=== PATIENT | female | born 1965 | race Caucasian/White ===

== ENCOUNTER 2024-02-02 18:49 | Observation (INO) ==
--- NOTE | 2024-02-02 19:41 | ED.PDOC ---
General ED Provider: Dr. LORY STEWART DO Chief Complaint: Non-specific Complaint Stated Complaint: Patient is a 58 yo F here for weakness and decreased PO intake Patient arrives afebrile with stable blood pressure She is fighting pancreatic cancer with the [facility] cancer team She has been on a break from chemotherapy sicjan 16 due to discomfort with side effects Her PCP is Dr. Aguayo She denies falls or injuries No sick contacts She was diagnosed late last year She has had a pancreatic stent placed and has had to have clean out follow on procedures of the stent Goal is for cancer to shrink with chemo and follow on Whipple procedure She denies rash or dysuria She reports decreased PO intake, weakness, nausea discomfort No bleeding No sob No productive cough or dysuria She and her are frustrated with multiple hospital visits with ER boarding and overcrowding at [facility] and [facility] Patient stable Time Seen by Provider: 02/02/24 19:00 Information Source: Patient Primary Care Provider: JAM AGUAYO Nursing and Triage Documentation Reviewed and Agree: Yes What is Opioid Naive?: *Opioid Naive implies the patient is not already taking opioids or not chronically receiving opioids on a daily basis. *PRN dosing is not "usually" associated with tolerance. *Patients are at higher risk of over-sedation and aspiration. What is Opioid Tolerant?: *Opioid Tolerance implies less than the expected response to an opioid. *Acquired tolerance is defined by the patient taking 60mg of oral morphine daily (or equianalgesic dose of another opioid) for 1 week or more. *Often associated with chronic pain. *May take more than usual dose to achieve desired pain control. Review of Systems Review Of Systems Constitutional: Reports Fever and Weakness; Denies Chills, Malaise or Sweats Eyes: Denies Blindness or Vision change Ears, Nose, Mouth, Throat: Denies Ear pain, Nose pain or Epistaxis Respiratory: Reports Cough; Denies Stridor or Wheezing Cardiac: Denies Chest pain or Palpitations GI: Reports Nausea and Vomiting; Denies Constipated or Diarrhea : Denies Burning, Dysuria or Discharge Musculoskeletal: Denies Back pain or Joint pain Skin: Denies Bruising or Rash Neurological: Denies Anxiety or Depressed Endocrine: Reports No symptoms Hematologic/Lymphatic: Reports No symptoms All Other Systems: Reviewed and Negative [facility] Medical History (Updated 02/03/24 @ 05:56 by LORY STEWART DO) Cancer 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 C80.1 - Malignant (primary) neoplasm, unspecified (ICD-10) Family History (Updated 02/02/24 @ 23:10 by IRA HARRIS, RN) Other No known health problems Social History (Updated 02/02/24 @ 23:11 by IRA HARRIS, RN) Smoking and tobacco status: Never smoker Physical Exam Physical Exam Appearance: Reports Well-appearing and Well-nourished Ill-appearing: Not Applicable Pain Distress: Not Applicable Eyes: Reports FADI, EOMI and Conjunctiva clear ENT: Reports Ears normal, Nose normal and Oropharynx normal Neck: Supple Respiratory: Reports Airway patent, Breath sounds clear and Other (RR 16 on my exam) Cardiovascular: Reports RRR (HR 90 on my exam) and Other (R chest port in place no warmth or rash or discharge) GI/: Reports Soft, Nontender and Other (no guarding or peritonitis, negative mercer sign, no gross fluid wave) Musculoskeletal: Reports Normal strength and ROM intact Skin: Reports Warm and Dry Neurological: Reports Sensation intact and Motor intact Psychiatric: Reports Affect appropriate and Mood appropriate Interpretation EKG Interpretation EKG Interpretation By: ED Physician Time of EKG #1: 19:51 Interpretation: NSR rate 90 no stemi qrs and qt wnl Course Course 02/03/24 05:16 02/02/24 20:04 Orders, Labs, Meds: Lab Review 02/02/24 02/02/24 02/02/24 08:08 19:40 20:04 WBC 14.14 H RBC 3.16 L Hgb 9.3 L Hct 28.8 L MCV 91.1 MCH 29.4 MCHC 32.3 RDW Coeff of Bryce 21.5 H Plt Count 177 Immature Gran % (Auto) 2.3 Neut % (Auto) 77.9 H Lymph % (Auto) 6.9 L Braxton % (Auto) 12.7 H Eos % (Auto) 0.0 Baso % (Auto) 0.2 Neut # (Auto) 11.0 H Lymph # (Auto) 1.0 Braxton # (Auto) 1.8 Eos # (Auto) 0.0 Baso # (Auto) 0.0 Immature Gran # (Auto) 0.3 VBG pH 7.45 H VBG pCO2 29 L VBG pO2 85 H VBG HCO3 20.2 L VBG O2 Saturation 96.9 H Sodium 128.5 L Potassium 3.58 Chloride 107.1 H Carbon Dioxide 17.4 L Anion Gap 7.58 BUN 7.5 Creatinine 0.57 L Estimated GFR (MDRD) 109.00 BUN/Creatinine Ratio 13.15 Glucose 102.6 Lactic Acid 0.76 Calcium 7.77 L Total Bilirubin 1.68 H AST 95.5 H ALT 54.8 H Alkaline Phosphatase 436.6 H Troponin I < 0.012 Total Protein 6.11 L Albumin 2.69 L Globulin 3.42 Albumin/Globulin Ratio 0.78 Lipase 24.0 Procalcitonin 0.97 H Urine Color Serena Urine Clarity Slightly Urine pH 5.5 Ur Specific [place] >=1.030 Urine Protein 2+ H Urine Glucose (UA) Negative Urine Ketones Trace H Urine Blood 3+ H Urine Nitrite Negative Urine Bilirubin 1+ H Urine Urobilinogen 1.0 H Ur Leukocyte Esterase Negative Urine Microscopic RBC 5-10 Urine Microscopic WBC 0-2 Ur Squamous Epith Cells 5-10 Urine Bacteria 3+ Urine Mucus 3+ Urine Yeast 1+ Adenovirus (PCR) Not detected B. pertussis DNA (PCR) Not detected B.parapertussis DNA PCR Not detected C. pneumoniae DNA (PCR) Not detected Coronavirus OC43 (PCR) Not detected Coronavirus HKU1 (PCR) Not detected Coronavirus 229E (PCR) Not detected Coronavirus NL63 (PCR) Not detected Human Metapneumovir PCR Not detected Influenza Type A (PCR) Not detected Influenza B (RT-PCR) Not detected M. pneumoniae (PCR) Not detected Parainfluenza 1 (PCR) Not detected Parainfluenza 2 (PCR) Not detected Parainfluenza 3 (PCR) Not detected Parainfluenza 4 (PCR) Not detected RSV (PCR) Not detected Entero/Rhino (PCR) Not detected SARS-CoV-2 (PCR) Not detected Orders Category Date Time Status ADMIT OBSERVATION [PLACE PATIENT OBSERVATION] .TO ADMISSION 02/02/24 22:09 Completed MEDSURG (MONITORED BED) PLACE PATIENT OBSERVATION .TO MEDSURG (MONITORED BED ADMISSION 02/02/24 22:00 Active ) EKG-(ED ONLY) Stat CARDIO 02/02/24 19:35 Completed VBG DRAW REQUEST Stat CARDIO 02/02/24 20:14 Completed VBG DRAW REQUEST Stat CARDIO 02/02/24 20:21 Completed ACTIVITY .Up With Assistance CARE 02/02/24 22:00 Active INTAKE & OUTPUT Q8HR CARE 02/02/24 22:01 Active NPO REMINDER: IMAGING ONCE CARE 02/02/24 19:34 Completed TELEMETRY MONITORING TELE CARE 02/02/24 22:01 Active TELEMETRY MONITORING TELE CARE 02/02/24 22:09 Completed VITAL SIGNS Q8HR CARE 02/02/24 22:01 Completed REGULAR DIET DIETARY 02/03/24 Breakfast Ordered BLOOD CULTURE Stat LAB 02/02/24 22:42 Received CBC W/ AUTO DIFF DAILY@0600 LAB 02/03/24 05:16 Completed CBC W/ AUTO DIFF DAILY@0600 LAB 02/04/24 06:00 Ordered CBC W/ AUTO DIFF Stat LAB 02/02/24 20:04 Completed COMPREHENSIVE METABOLIC PANEL DAILY@0600 LAB 02/03/24 05:16 Received COMPREHENSIVE METABOLIC PANEL DAILY@0600 LAB 02/04/24 06:00 Ordered COMPREHENSIVE METABOLIC PANEL Stat LAB 02/02/24 20:04 Completed LACTIC ACID Stat LAB 02/02/24 20:04 Completed LEGIONELLA URINARY ANTIGEN Stat LAB 02/02/24 22:02 Uncollected LIPASE Stat LAB 02/02/24 20:04 Completed MISCELLANEOUS SEND OUT Stat LAB 02/02/24 19:40 Received MRSA SCREEN Routine LAB 02/02/24 22:05 Uncollected PROCALCITONIN DAILY LAB 02/03/24 05:16 Received PROCALCITONIN DAILY LAB 02/04/24 06:00 Ordered PROCALCITONIN Stat LAB 02/02/24 20:04 Completed RESPIRATORY PANEL 2.1 (PCR) Stat LAB 02/02/24 19:40 Completed TROPONIN I Stat LAB 02/02/24 20:04 Completed URINALYSIS C & S IF INDICATED Stat LAB 02/02/24 19:40 Completed URINE CULTURE Stat LAB 02/02/24 19:40 Received VBG [VENOUS BLOOD GAS] Stat LAB 02/02/24 08:08 Completed Acetaminophen [Tylenol] Meds 02/02/24 22:00 Active 650 mg PO Q4H PRN Ondansetron HCl/Pf [Zofran 4 mg/2 ml] Meds 02/02/24 22:00 Active 4 mg IVP Q6H PRN Piperacillin Sodium/Tazobactam [Zosyn 4.5 gm] 4.5 gm Meds 02/02/24 21:50 Discontinued 0.9 % Sodium Chloride [Sodium Chloride 100Ml] 100 ml IV ONCE Piperacillin Sodium/Tazobactam [Zosyn 4.5 gm] 4.5 gm Meds 02/03/24 04:00 Active 0.9 % Sodium Chloride [Sodium Chloride 100Ml] 100 ml IV Q6HR Sodium Chloride 0.9% [Sodium Chloride] 1,000 ml Meds 02/02/24 19:33 Discontinued IV BOLUS Vancomycin/Water For Inj (Peg) [Vancomycin 1.5 Gram/300 Meds 02/02/24 21:50 Discontinued ml Premix] 1.5 gm in 300 ml IV ONCE Vancomycin/Water For Inj (Peg) [Vancomycin 1.5 Gram/300 Meds 02/03/24 11:00 Active ml Premix] 1.5 gm in [address] ABDOMEN/PELVIS W CONTRAST Stat RADS 02/02/24 19:[address] CHEST PE PROTOCOL Stat RADS 02/02/24 19:33 Completed Medications Generic Name Dose Route Start Last Admin Trade Name Freq PRN Reason Stop Dose Admin Acetaminophen 650 mg 02/02/24 22:00 Acetaminophen 325 Mg Tablet PO Q4H PRN Mild Pain Piperacillin Sod/Tazobactam 100 mls @ 200 mls/hr 02/03/24 04:00 02/03/24 03:58 Sod 4.5 gm/ Sodium Chloride IV 02/06/24 03:59 200 mls/hr Q6HR [facility] Administration VANCOMYCIN/WATER FOR INJ (PEG) 1.5 gm in 300 mls @ 200 mls/hr 02/03/24 11:00 Vancomycin 1.5 Gram/300 Ml Premix IV 02/06/24 10:59 Q12H [facility] Ondansetron HCl 4 mg 02/02/24 22:00 Ondansetron Hcl/Pf 4 Mg/2 Ml Sdv IVP Q6H PRN Nausea / Vomiting Discontinued Medications Generic Name Dose Route Start Last Admin Trade Name Freq PRN Reason Stop Dose Admin Sodium Chloride 1,000 mls @ 1,000 mls/hr 02/02/24 19:33 02/02/24 21:47 Sodium Chloride IV 02/02/24 20:32 Infused BOLUS ONE Infusion VANCOMYCIN/WATER FOR INJ (PEG) 1.5 gm in 300 mls @ 200 mls/hr 02/02/24 21:50 02/02/24 23:20 Vancomycin 1.5 Gram/300 Ml Premix IV 02/02/24 23:19 200 mls/hr ONCE ONE Administration Piperacillin Sod/Tazobactam 100 mls @ 200 mls/hr 02/02/24 21:50 02/02/24 22:06 Sod 4.5 gm/ Sodium Chloride IV 02/02/24 22:19 200 mls/hr ONCE ONE Administration Vital Signs: Temp Pulse Resp BP Pulse Ox 02/02/24 18:51 99.4 F 104 H 24 H 144/85 H 92 L Patient amenable to IV abx and admission for BL pneumonia without sepsis Hospitalist agrees with observation Pending consult with [facility] pay station collector oncologist to review case and care plan, Dr. nguyen agrees with plan MDM: patient is a 58 yo F here for weakness cough and discomfort Patient afebrile and vitally stable Hx from patient chart review by me exam reassuring 3+ labs and 3 images reviewed by me I consulted Hospitalist here for admission and her pay station collector Oncologist from [facility] who also agrees with local admission WDX: Weakness, pneumonia, cough, discomfort DDX: I considered sepsis, PE acs but these were not found SDOH: Patient has PCP and family support All questions answered patient discharged stable Discharge Plan Discharge Patient Disposition: PLACED OBSERVATION Discharge Problem: Pneumonia Did you review [place] [employer] for ALL controlled substances?: Not Applicable ED Provider: LORY STEWART Condition: Good Physician Progress Note: []
[2024-02-02] MEDS: SODIUM CHLORIDE 1,000 ML IV ONE (20:07)
[2024-02-02 20:09] LABS: BORDETELLA PARAPERTUSSIS (PCR) NOT DETECTED (NOT DETECT); BORDETELLA PERTUSSIS (PCR) NOT DETECTED (NOT DETECT); CHLAMYDIA PNEUMONIAE (PCR) NOT DETECTED (NOT DETECT); CORONAVIRUS 229E (PCR) NOT DETECTED (NOT DETECT); CORONAVIRUS HKU1 (PCR) NOT DETECTED (NOT DETECT); CORONAVIRUS NL63 (PCR) NOT DETECTED (NOT DETECT); CORONAVIRUS OC43 (PCR) NOT DETECTED (NOT DETECT); HUMAN METAPNEUMOVIRUS (PCR) NOT DETECTED (NOT DETECT); HUMAN RHINOVIRUS/ENTEROV (PCR) NOT DETECTED (NOT DETECT); INFLUENZA B (PCR) NOT DETECTED (NOT DETECT); MYCOPLASMA PNEUMONIAE (PCR) NOT DETECTED (NOT DETECT); PARAINFLUENZA VIRUS 1 (PCR) NOT DETECTED (NOT DETECT); PARAINFLUENZA VIRUS 2 (PCR) NOT DETECTED (NOT DETECT); PARAINFLUENZA VIRUS 3 (PCR) NOT DETECTED (NOT DETECT); PARAINFLUENZA VIRUS 4 (PCR) NOT DETECTED (NOT DETECT); RESPIRATORY SYNCYTIAL V (PCR) NOT DETECTED (NOT DETECT); SARS_COV_2 (PCR) NOT DETECTED (NOT DETECT)
[2024-02-02 20:09] LABS: BASOPHILS % (AUTO) 0.2 % (0.0-3.0); HEMATOCRIT 28.8 % (37.0-47.0); HEMOGLOBIN 9.3 g/dl (12.0-16.0); IMMATURE GRANULOCYTE # (AUTO) 0.3 (0.0-1.0); IMMATURE GRANULOCYTE % (AUTO) 2.3 % (0.0-5.0); LYMPHOCYTES % (AUTO) 6.9 (10.0-50.0); MEAN CORPUSCULAR HEMOGLOBIN 29.4 pg (27.0-31.0); MEAN CORPUSCULAR HGB CONC 32.3 (31.8-35.4); MEAN CORPUSCULAR VOLUME 91.1 fl (81.0-99.0); MONOCYTES # (AUTO) 1.8 K/uL (0.4-2.0); MONOCYTES % (AUTO) 12.7 (0-10); NEUTROPHILS % (AUTO) 77.9 % (42.2-75.2); PLATELET COUNT 177 10^3/uL (140-440); RDW COEFFICIENT OF VARIATION 21.5 % (11.6-14.8); RED BLOOD COUNT 3.16 10^6/ul (4.20-5.40); WHITE BLOOD COUNT 14.14 K/ul (4.6-10.2)
[2024-02-02 20:16] LABS: BILIRUBIN,URINE 1+ (NEGATIVE); CLARITY,URINE Slightly (CLEAR); COLOR,URINE Amber (YELLOW); GLUCOSE, URINE (UA) Negative (NEGATIVE); KETONES,URINE Trace (NEGATIVE); LEUKOCYTE ESTERASE ,URINE Negative (NEGATIVE); NITRITE,URINE Negative (NEGATIVE); PH,URINE 5.5 (5-9); PROTEIN,URINE 2+ (NEGATIVE); URINE, BLOOD 3+ (NEGATIVE)
[2024-02-02 20:22] LABS: ALANINE AMINOTRANSFERASE 54.8 U/L (0-35); ALBUMIN 2.69 g/dL (3.5-5.0); ALKALINE PHOSPHATASE 436.6 U/L (53-141); ASPARTATE AMINO TRANSFERASE 95.5 U/L (14-36); BILIRUBIN,TOTAL 1.68 mg/dL (0.2-1.3); BLOOD UREA NITROGEN 7.5 mg/dL (7-17); CALCIUM 7.77 mg/dL (8.4-10.2); CARBON DIOXIDE 17.4 mmol/L (22-30.0); CREATININE 0.57 mg/dL (0.60-1.30); GLUCOSE 102.6 mg/dL (74-106); POTASSIUM 3.58 mmol/L (3.5-5.1); SODIUM 128.5 mmol/L (134.5-145); TOTAL PROTEIN 6.11 g/dL (6.3-8.2)
[2024-02-02 20:24] LABS: CHLORIDE 107.1 mmol/L (98-107)
[2024-02-02 20:33] LABS: VBG HCO3 20.2 (22-26); VBG OXYGEN SATURATION 96.9 (60-80); VBG PH 7.45 (7.30-7.40)
[2024-02-02 20:36] LABS: TROPONIN I < 0.012 ng/ml (0.0000-0.120)
[2024-02-02 20:57] LABS: URINE WBC, MICROSCOPIC 0-2 (0-2)
[2024-02-02 20:58] LABS: BACTERIA,URINE 3+ (NOT PRESENT); MUCUS,URINE 3+ (NOT PRESENT); YEAST,URINE 1+ (NOT PRESENT)
--- NOTE | 2024-02-02 21:26 | CT ---
EXAM: CT OF THE ABDOMEN AND PELVIS WITH CONTRAST History: Pancreatic carcinoma with metastatic disease to the liver Technique: 2.[address] of the chest utilizing CT angiography protocol. Multiplanar refor mations were performed. FINDINGS: No prior CT for comparison. Prominent atelectasis in the lung bases. Pneumobilia with me tallic biliary stent. Small volume ascites. Dilated pancreatic duct. There is a 1.4 cm hypodensity of the pancreatic head. Wedge-shaped hypodensity in the spleen with trace perisplenic ascites. 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 The appendix is normal. Normal caliber bowel loops. Generalized edema of the mesentery. Kidneys and proximal collecting system are unrema rkable. Pelvic ascites. Normal pelvic genitourinary structures. Normal pelvic bowel loops. No pelvic fat i nflammation. No acute findings of the skeleton. Impression: 1. No prior study for comparison 2. Metallic biliary stent in place. 3. Trace inflammatory stranding adjacent to the pancreatic head and duodenal wall thickening. Corre late for possible pancreatitis or duodenitis. 4. Small volume ascites 5. Wedge-shaped hypodensity in the spleen likely represents infarct, chronicity uncertain. 6. No bowel or urinary obstruction 7. No liver masses are seen All CT scans are performed using dose optimization techniques as appropriate to the performed exam an d include at least one of the following: Automated exposure control, adjustment of the mA and/or kV according t o size, and the use of iterative reconstruction technique.
[2024-02-02 21:28] LABS: ADENOVIRUS (PCR) NOT DETECTED (NOT DETECT)
--- NOTE | 2024-02-02 21:30 | CT ---
EXAM: CHEST CTA WITH CONTRAST (PULMONARY ARTERY) HISTORY: Cough. Weakness. Pancreatic cancer. TECHNIQUE: CTA acquisition of the chest from the thoracic inlet to the upper abdomen following IV con trast administration timed to filling of the pulmonary artery. IV Contrast: 100 mL of Omnipaque 350 administered. 3D/MIP/VR images were utilized. CT Dose Reduction Techniques Employed: Yes. COMPARISON: None. FINDINGS: Pulmonary Embolism: - Diagnostic quality: Adequate. - Central (Main/Lobar/Interlobar): No embolus. - Peripheral (Segmental/Subsegmental): No embolus. - Right ventricle/Left ventricle ratio: Normal. Lines, Tubes, Devices: Right Port-A-Cath with the tip in the atrial caval junction. Lung Parenchyma and Airways: Central airways are patent without endobronchial lesion. Bibasilar cons olidation. The remaining lung gallagher are clear. No suspicious pulmonary nodule. Pleural Space: The pleural effusions. No pneumothorax. Thoracic Inlet, Mediastinum, and Ashley: Thyroid gland is normal. Multiple small to prominent lymph no shantanu, largest in the pretracheal space measuring 1.8 x 1.6 cm. No abnormal density seen in the medias tinum. Heart, Vessels, and Pericardium: The heart is upper limits of normal for size with minimal pericardia l fluid. Minimal coronary artery calcifications. The aorta shows minimal atherosclerotic calcific c hanges without aneurysm or indication of dissection. Bones and Soft Tissues: There is no fracture or lytic lesion. Mild degenerative changes of the spine. Chest wall shows no enlarged axillary lymph node or mass. Upper Abdomen: . The common bile duct stent is in place with pneumobilia and air in the gallbladder without other gallbladder abnormality. The pancreatic head prominence without a defined lesion. Mi ld ascites. The upper abdomen is otherwise unremarkable. IMPRESSION: 1. Normal CT pulmonary angiogram with no evidence of pulmonary artery embolism. 2. Mild bilateral lower lobe consolidation. Atelectasis versus pneumonia. 3. Mild ascites. 4. A small prominent mediastinal and hilar lymph nodes. 5. Other chronic and non emergent findings as above. All CT scans are performed using dose optimization techniques as appropriate to the performed exam an d include at least one of the following: Automated exposure control, adjustment of the mA and/or kV according t o size, and the use of iterative reconstruction technique.
[2024-02-02] MEDS ORDERED: TYLENOL PO PRN (22:00)
[2024-02-02] MEDS ORDERED: ZOFRAN 4 MG/2 ML IVP PRN (22:00)
[2024-02-02] MEDS: ZOSYN 4.5 GM 4.5 GM in SODIUM CHLORIDE 100ML 100 ML IV ONE (22:06)
[2024-02-02 23:17] VITALS: BMI 33.6
[2024-02-02] MEDS: VANCOMYCIN 1.5 GRAM/300 ML PREMIX 1.5 GM/300 ML BAG IV ONE (23:20)
[2024-02-03] MEDS: ZOSYN 4.5 GM 4.5 GM in SODIUM CHLORIDE 100ML 100 ML IV SCH (03:58)
[2024-02-03 05:39] LABS: BASOPHILS % (AUTO) 0.2 % (0.0-3.0); EOSINOPHILS % (AUTO) 0.1 % (0.0-7.0); HEMATOCRIT 25.4 % (37.0-47.0); HEMOGLOBIN 8.3 g/dl (12.0-16.0); IMMATURE GRANULOCYTE # (AUTO) 0.2 (0.0-1.0); IMMATURE GRANULOCYTE % (AUTO) 1.7 % (0.0-5.0); LYMPHOCYTES % (AUTO) 8.9 (10.0-50.0); MEAN CORPUSCULAR HEMOGLOBIN 30.1 pg (27.0-31.0); MEAN CORPUSCULAR HGB CONC 32.7 (31.8-35.4); MONOCYTES # (AUTO) 1.4 K/uL (0.4-2.0); MONOCYTES % (AUTO) 12.7 (0-10); NEUTROPHILS # (AUTO) 8.2 K/ul (2.0-6.9); NEUTROPHILS % (AUTO) 76.4 % (42.2-75.2); PLATELET COUNT 164 10^3/uL (140-440); RDW COEFFICIENT OF VARIATION 21.9 % (11.6-14.8); RED BLOOD COUNT 2.76 10^6/ul (4.20-5.40)
[2024-02-03 06:00] LABS: ALANINE AMINOTRANSFERASE 52.4 U/L (0-35); ALBUMIN 2.56 g/dL (3.5-5.0); ALKALINE PHOSPHATASE 408.8 U/L (53-141); ASPARTATE AMINO TRANSFERASE 92.5 U/L (14-36); BILIRUBIN,TOTAL 1.84 mg/dL (0.2-1.3); BLOOD UREA NITROGEN 7.1 mg/dL (7-17); CALCIUM 7.97 mg/dL (8.4-10.2); CARBON DIOXIDE 18.8 mmol/L (22-30.0); CHLORIDE 107.1 mmol/L (98-107); CREATININE 0.62 mg/dL (0.60-1.30); GLUCOSE 94.5 mg/dL (74-106); POTASSIUM 3.58 mmol/L (3.5-5.1); SODIUM 130.8 mmol/L (134.5-145); TOTAL PROTEIN 6.03 g/dL (6.3-8.2)
[2024-02-03] MEDS: ELIQUIS PO SCH (09:23)
[2024-02-03] MEDS: SODIUM CHLORIDE 1,000 ML IV SCH (09:24)
--- NOTE | 2024-02-03 10:30 | PCM ---
Date of Service Date Seen by Provider: 02/03/24 Time Seen by Provider: 09:00 Admit Day/Time Admission Date: 02/02/24 Reason for Admission Chief Complaint: PNEUMONIA Hospital Provider Hospital Provider: HIMANSHU LEAL, [facility] Primary Care Physician Primary Care Physician: JAM AGUAYO History of Present Illness History of Present Illness: 58 yo female presented to the ER with fever, fatigue, and cough. Patient states she has not been feeling well over the last several weeks. She has pmh of stage 4 pancreatic cancer with liver mets managed by [facility] in [place]. She last underwent chemo the last week of December and all her numbers bottomed out and chemo is on hold currently. States she has had nonproductive cough and pain with inspiration. Began running a fever as high as 100.4 over the last couple days. Reported SOB on exertion to nursing staff. Is not requiring oxygen at this time. Admitted to Med/Surg Observation Case Discussed With Case Discussed With: Patient's case was discussed with the ER Physicians, Dr. Aguayo. [facility] Medical History Cancer 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 C80.1 - Malignant (primary) neoplasm, unspecified (ICD-10) Family History Other No known health problems Social History Smoking and tobacco status: Never smoker Allergies Allergies Allergy/AdvReac Type Severity Reaction Status Date / Time No Known Allergies Allergy Verified 02/02/24 19:07 Current Medications Home Medications apixaban 5 mg tablet (Eliquis) 5 mg PO BID 06/22/23 [History Confirmed 02/02/24 Last Taken 01/31/24 06:30 5 mg] ondansetron HCl 4 mg tablet 8 mg PO Q8H PRN nausea and vomiting 02/02/24 [History Confirmed 02/02/24 Last Taken Unknown] Home Acetaminophen (Acetaminophen 325 Mg Tablet) 650 mg PO Q4H PRN PRN Reason: Mild Pain Apixaban (Apixaban 5 Mg Tab) 5 mg PO BID [facility] Last Admin: 02/03/24 09:23 Dose: 5 mg Piperacillin Sod/Tazobactam (Sod 4.5 gm/ Sodium Chloride) 100 mls @ 200 mls/hr IV Q6HR PENDING SALE TO [facility] Stop: 02/06/24 03:59 Last Admin: 02/03/24 06:09 Dose: Not Given VANCOMYCIN/WATER FOR INJ (PEG) (Vancomycin 1.5 Gram/300 Ml Premix) 1.5 gm in 300 mls @ 200 mls/hr IV Q12HR PENDING SALE TO [facility] Stop: 02/06/24 10:59 Sodium Chloride (Sodium Chloride) 1,000 mls @ 100 mls/hr IV .Q10H PENDING SALE TO [facility] Last Admin: 02/03/24 09:24 Dose: 100 mls/hr Ondansetron HCl (Ondansetron Hcl/Pf 4 Mg/2 Ml Sdv) 4 mg IVP Q6H PRN PRN Reason: Nausea / Vomiting Discontinued Medications Sodium Chloride (Sodium Chloride) 1,000 mls @ 1,000 mls/hr IV BOLUS ONE Stop: 02/02/24 20:32 Last Infusion: 02/02/24 21:47 Dose: Infused VANCOMYCIN/WATER FOR INJ (PEG) (Vancomycin 1.5 Gram/300 Ml Premix) 1.5 gm in 300 mls @ 200 mls/hr IV ONCE ONE Stop: 02/02/24 23:19 Last Admin: 02/02/24 23:20 Dose: 200 mls/hr Piperacillin Sod/Tazobactam (Sod 4.5 gm/ Sodium Chloride) 100 mls @ 200 mls/hr IV ONCE ONE Stop: 02/02/24 22:19 Last Admin: 02/02/24 22:06 Dose: 200 mls/hr Opioid Naive vs. Tolerant Does Patient Take Opioids?: No Is Patient Opioid Naive?: Yes What is Opioid Naive?: *Opioid Naive implies the patient is not already taking opioids or not chronically receiving opioids on a daily basis. *PRN dosing is not "usually" associated with tolerance. *Patients are at higher risk of over-sedation and aspiration. Is Patient Opioid Tolerant?: No What is Opioid Tolerant?: *Opioid Tolerance implies less than the expected response to an opioid. *Acquired tolerance is defined by the patient taking 60mg of oral morphine daily (or equianalgesic dose of another opioid) for 1 week or more. *Often associated with chronic pain. *May take more than usual dose to achieve desired pain control. Review of Systems Constitutional: Reports Fever, Fatigue and Weakness Head: Reports Normocephalic Eyes: Reports No symptoms Ears: Reports No symptoms Nose: Reports No symptoms Mouth: Reports No symptoms Throat: Reports No symptoms Cardiovascular: Reports No symptoms Respiratory: Reports Cough and Shortness of air Gastrointestinal: Reports No symptoms Genitourinary: Reports No Symptoms Musculoskeletal: Reports No symptoms Endocrine: Reports No symptoms Hematology: Reports No symptoms Immunology: Reports No symptoms Neurological: Reports No symptoms Psychiatric: Reports No symptoms Physical examination Most Recent Vital Signs: Most Recent Vital Signs Temperature 98.9 F 02/03/24 10:00 Temperature Source Temporal Artery Scan 02/03/24 10:00 Temperature Source Oral 02/02/24 18:51 Pulse Rate 80 02/03/24 10:00 Respiratory Rate 18 02/03/24 10:00 Blood Pressure 141/83 H 02/03/24 10:00 Blood Pressure Mean 102 02/03/24 10:00 Blood Pressure Left Arm 173/91 02/02/24 23:00 Blood Pressure Location Left Arm 02/03/24 10:00 Blood Pressure Position Supine 02/03/24 04:59 O2 Sat by Pulse Oximetry 95 02/03/24 10:00 Oxygen Delivery Method Room Air 02/03/24 10:00 Height 5 ft 5 in 02/02/24 23:00 Weight 202 lb 3 oz 02/02/24 23:00 Telemetry Type Remote Telemetry 02/03/24 07:00 Telemetry Monitoring Continues 02/03/24 07:00 Telemetry Heart Rate 84 02/03/24 07:00 Telemetry SPO2 94 02/03/24 07:00 EKG [place] Interval 0.14 02/03/24 07:00 EKG QRS Interval 0.04 L 02/03/24 07:00 Telemetry Strip Reading sr 02/03/24 07:00 Appearance: Positive No Apparent Distress and Alert and Oriented x3 Skin: Positive Warm HEENT: Positive Normocephalic and Atraumatic Neck: Positive Supple and Midline Trachea Chest/Lungs: Positive Symmetrical With Equal Breath Sounds, Rhonci and Good Air Movement all 4 Lung Fan Heart: Positive RRR and Pulses Normal GI/: Positive Soft, Nontender, Bowel Sounds Normal and No Distention Musculoskeletal: Positive Not Examined Extremities: Positive Intact Peripheral Pulses, Stable Joints Without Laxity and Good ROM in All Joints Neurological: Positive Sensation Intact, Motor intact, Reflexes Intact, Alert, Oriented and Muscle Strength 5/5 in Upper and Lower Extremities Bilaterally Labs This Visit Labs This Visit: Labs This Visit 02/02/24 02/02/24 02/02/24 08:08 19:40 20:04 WBC 14.14 H RBC 3.16 L Hgb 9.3 L Hct 28.8 L MCV 91.1 MCH 29.4 MCHC 32.3 RDW Coeff of Bryce 21.5 H Plt Count 177 Immature Gran % (Auto) 2.3 Neut % (Auto) 77.9 H Lymph % (Auto) 6.9 L Carbon % (Auto) 12.7 H Eos % (Auto) 0.0 Baso % (Auto) 0.2 Neut # (Auto) 11.0 H Lymph # (Auto) 1.0 Carbon # (Auto) 1.8 Eos # (Auto) 0.0 Baso # (Auto) 0.0 Immature Gran # (Auto) 0.3 VBG pH 7.45 H VBG pCO2 29 L VBG pO2 85 H VBG HCO3 20.2 L VBG O2 Saturation 96.9 H Sodium 128.5 L Potassium 3.58 Chloride 107.1 H Carbon Dioxide 17.4 L Anion Gap 7.58 BUN 7.5 Creatinine 0.57 L Estimated GFR (MDRD) 109.00 BUN/Creatinine Ratio 13.15 Glucose 102.6 Lactic Acid 0.76 Calcium 7.77 L Total Bilirubin 1.68 H AST 95.5 H ALT 54.8 H Alkaline Phosphatase 436.6 H Troponin I < 0.012 Total Protein 6.11 L Albumin 2.69 L Globulin 3.42 Albumin/Globulin Ratio 0.78 Lipase 24.0 Procalcitonin 0.97 H Urine Color Serena Urine Clarity Slightly Urine pH 5.5 Ur Specific [place] >=1.030 Urine Protein 2+ H Urine Glucose (UA) Negative Urine Ketones Trace H Urine Blood 3+ H Urine Nitrite Negative Urine Bilirubin 1+ H Urine Urobilinogen 1.0 H Ur Leukocyte Esterase Negative Urine Microscopic RBC 5-10 Urine Microscopic WBC 0-2 Ur Squamous Epith Cells 5-10 Urine Bacteria 3+ Urine Mucus 3+ Urine Yeast 1+ Adenovirus (PCR) Not detected B. pertussis DNA (PCR) Not detected B.parapertussis DNA PCR Not detected C. pneumoniae DNA (PCR) Not detected Coronavirus OC43 (PCR) Not detected Coronavirus HKU1 (PCR) Not detected Coronavirus 229E (PCR) Not detected Coronavirus NL63 (PCR) Not detected Human Metapneumovir PCR Not detected Influenza Type A (PCR) Not detected Influenza B (RT-PCR) Not detected M. pneumoniae (PCR) Not detected Parainfluenza 1 (PCR) Not detected Parainfluenza 2 (PCR) Not detected Parainfluenza 3 (PCR) Not detected Parainfluenza 4 (PCR) Not detected RSV (PCR) Not detected Entero/Rhino (PCR) Not detected SARS-CoV-2 (PCR) Not detected 02/03/24 05:16 WBC 10.70 H RBC 2.76 L Hgb 8.3 L Hct 25.4 L MCV 92.0 MCH 30.1 MCHC 32.7 RDW Coeff of Bryce 21.9 H Plt Count 164 Immature Gran % (Auto) 1.7 Neut % (Auto) 76.4 H Lymph % (Auto) 8.9 L Carbon % (Auto) 12.7 H Eos % (Auto) 0.1 Baso % (Auto) 0.2 Neut # (Auto) 8.2 H Lymph # (Auto) 1.0 Carbon # (Auto) 1.4 Eos # (Auto) 0.0 Baso # (Auto) 0.0 Immature Gran # (Auto) 0.2 VBG pH VBG pCO2 VBG pO2 VBG HCO3 VBG O2 Saturation Sodium 130.8 L Potassium 3.58 Chloride 107.1 H Carbon Dioxide 18.8 L Anion Gap 8.48 BUN 7.1 Creatinine 0.62 Estimated GFR (MDRD) 99.00 BUN/Creatinine Ratio 11.45 Glucose 94.5 Lactic Acid Calcium 7.97 L Total Bilirubin 1.84 H AST 92.5 H ALT 52.4 H Alkaline Phosphatase 408.8 H D Troponin I Total Protein 6.03 L Albumin 2.56 L Globulin 3.47 Albumin/Globulin Ratio 0.73 Lipase Procalcitonin 0.98 H Urine Color Urine Clarity Urine pH Ur Specific [place] Urine Protein Urine Glucose (UA) Urine Ketones Urine Blood Urine Nitrite Urine Bilirubin Urine Urobilinogen Ur Leukocyte Esterase Urine Microscopic RBC Urine Microscopic WBC Ur Squamous Epith Cells Urine Bacteria Urine Mucus Urine Yeast Adenovirus (PCR) B. pertussis DNA (PCR) B.parapertussis DNA PCR C. pneumoniae DNA (PCR) Coronavirus OC43 (PCR) Coronavirus HKU1 (PCR) Coronavirus 229E (PCR) Coronavirus NL63 (PCR) Human Metapneumovir PCR Influenza Type A (PCR) Influenza B (RT-PCR) M. pneumoniae (PCR) Parainfluenza 1 (PCR) Parainfluenza 2 (PCR) Parainfluenza 3 (PCR) Parainfluenza 4 (PCR) RSV (PCR) Entero/Rhino (PCR) SARS-CoV-2 (PCR) Microbiology This Visit 02/02/24 19:40 Urine,Clean Catch Urine Culture - Preliminary Imaging Imaging: EXAM: CHEST CTA WITH CONTRAST (PULMONARY ARTERY) FINDINGS: Pulmonary Embolism: - Diagnostic quality: Adequate. - Central (Main/Lobar/Interlobar): No embolus. - Peripheral (Segmental/Subsegmental): No embolus. - Right ventricle/Left ventricle ratio: Normal. Lines, Tubes, Devices: Right Port-A-Cath with the tip in the atrial caval junction. Lung Parenchyma and Airways: Central airways are patent without endobronchial lesion. Bibasilar consolidation. The remaining lung fan are clear. No suspicious pulmonary nodule. Pleural Space: The pleural effusions. No pneumothorax. Thoracic Inlet, Mediastinum, and Ashley: Thyroid gland is normal. Multiple small to prominent lymph nodes, largest in the pretracheal space measuring 1.8 x 1.6 cm. No abnormal density seen in the mediastinum. Heart, Vessels, and Pericardium: The heart is upper limits of normal for size with minimal pericardial fluid. Minimal coronary artery calcifications. The aorta shows minimal atherosclerotic calcific changes without aneurysm or indication of dissection. Bones and Soft Tissues: There is no fracture or lytic lesion. Mild degenerative changes of the spine. Chest wall shows no enlarged axillary lymph node or mass. Upper Abdomen: . The common bile duct stent is in place with pneumobilia and air in the gallbladder without other gallbladder abnormality. The pancreatic head prominence without a defined lesion. Mild ascites. The upper abdomen is otherwise unremarkable. IMPRESSION: 1. Normal CT pulmonary angiogram with no evidence of pulmonary artery embolism. 2. Mild bilateral lower lobe consolidation. Atelectasis versus pneumonia. 3. Mild ascites. 4. A small prominent mediastinal and hilar lymph nodes. 5. Other chronic and non emergent findings as above. Review Statement Review Statement: I have independently reviewed and interpreted the labs/EKGs/imaging that were ordered by the ER provider. I have reviewed all outside records that are available currently in our EMR including imaging/notes/labs from previous visits. Plan Plan: 1. Sepsis r/o - vanc and zosyn ordered, received 1L IVF in ER. blood culture pending, trend wbc and procal 2. Community Acquired Pneumonia - vanc and zosyn, MRSA, legionella, strep pneumo ordered. 3. Hyponatremia - mild at 130.8, appears dry, NS@100mL/hr, tele 4. Pancreatic Cancer - Follows with [facility], continue eliquis DVT Prophylaxis: Eliquis Time Spent: Greater than 80 minutes spent with patient, 50% of the time spent with this patient was devoted to counseling and coordination of care. [facility] minutes spent discussing advance care planning. Disposition: Admit to: Med/Surg Observation Full Code Discussed Plan of Care with Dr. Michael Fuentes. Medications Medication Orders: Medications Ordered Category Date Time Status Acetaminophen [Tylenol] Meds 02/02/24 22:00 Active 650 mg PO Q4H PRN Apixaban [Eliquis] Meds 02/03/24 09:00 Active 5 mg PO BID Ondansetron HCl/Pf [Zofran 4 mg/2 ml] Meds 02/02/24 22:00 Active 4 mg IVP Q6H PRN Piperacillin Sodium/Tazobactam [Zosyn 4.5 gm] 4.5 gm Meds 02/03/24 04:00 Active 0.9 % Sodium Chloride [Sodium Chloride 100Ml] 100 ml IV Q6HR Sodium Chloride 0.9% [Sodium Chloride] 1,000 ml Meds 02/03/24 08:30 Active IV 100 mls/hr Vancomycin/Water For Inj (Peg) [Vancomycin 1.5 Gram/300 Meds 02/03/24 11:00 Active ml Premix] 1.5 gm in 300 ml IV Q12HR
[2024-02-03 11:01] LABS: IRON 22.4 ug/dL (37-170)
[2024-02-03] MEDS: VANCOMYCIN 1.5 GRAM/300 ML PREMIX 1.5 GM/300 ML BAG IV SCH (11:50)
[2024-02-03] MEDS: FERROUS SULFATE PO SCH (21:05)
[2024-02-04 05:21] LABS: BASOPHILS # (AUTO) 0.1 K/uL (0-0.2); BASOPHILS % (AUTO) 0.6 % (0.0-3.0); EOSINOPHILS # (AUTO) 0.1 K/ul (0.0-0.7); EOSINOPHILS % (AUTO) 0.8 % (0.0-7.0); HEMATOCRIT 25.6 % (37.0-47.0); HEMOGLOBIN 8.2 g/dl (12.0-16.0); IMMATURE GRANULOCYTE # (AUTO) 0.1 (0.0-1.0); IMMATURE GRANULOCYTE % (AUTO) 1.5 % (0.0-5.0); LYMPHOCYTES # (AUTO) 0.8 K/uL (0.60-3.4); LYMPHOCYTES % (AUTO) 10.3 (10.0-50.0); MEAN CORPUSCULAR HEMOGLOBIN 29.5 pg (27.0-31.0); MEAN CORPUSCULAR VOLUME 92.1 fl (81.0-99.0); MONOCYTES # (AUTO) 1.1 K/uL (0.4-2.0); MONOCYTES % (AUTO) 14.1 (0-10); NEUTROPHILS # (AUTO) 5.8 K/ul (2.0-6.9); NEUTROPHILS % (AUTO) 72.7 % (42.2-75.2); PLATELET COUNT 146 10^3/uL (140-440); RDW COEFFICIENT OF VARIATION 21.7 % (11.6-14.8); RED BLOOD COUNT 2.78 10^6/ul (4.20-5.40); WHITE BLOOD COUNT 7.99 K/ul (4.6-10.2)
[2024-02-04 05:35] LABS: ALANINE AMINOTRANSFERASE 52.6 U/L (0-35); ALBUMIN 2.5 g/dL (3.5-5.0); ALKALINE PHOSPHATASE 384.4 U/L (53-141); ASPARTATE AMINO TRANSFERASE 88.8 U/L (14-36); BILIRUBIN,TOTAL 1.85 mg/dL (0.2-1.3); BLOOD UREA NITROGEN 6.9 mg/dL (7-17); CALCIUM 7.75 mg/dL (8.4-10.2); CHLORIDE 109.3 mmol/L (98-107); CREATININE 0.62 mg/dL (0.60-1.30); GLUCOSE 88.1 mg/dL (74-106); POTASSIUM 3.54 mmol/L (3.5-5.1); TOTAL PROTEIN 6.16 g/dL (6.3-8.2)
[2024-02-04 10:04] VITALS: BP 145/85; PULSE 72; RESP 15; TEMP 97.9
--- NOTE | 2024-02-04 10:53 | DCSUM ---
Admission Date Admission Date: 02/02/24 Discharge Date Discharge Date: 02/04/24 Admission Diagnosis Admission Diagnosis: 1. Sepsis r/o 2. Community Acquired Pneumonia 3. Hyponatremia Discharge Diagnosis Discharge Diagnosis: 1. Sepsis r/o 2. Community Acquired Pneumonia 3. Hyponatremia 4. Pancreatic Cancer - Follows with [facility] Provider Hospital Provider: JAYE SHARP [facility]-C, [facility] Primary Care Physician Primary Care Physician: JAM AGUAYO Summary of History and Physical Summary of History and Physical: 58 yo female presented to the ER with fever, fatigue, and cough. Patient states she has not been feeling well over the last several weeks. She has pmh of stage 4 pancreatic cancer with liver mets managed by [facility] in [place]. She last underwent chemo the last week of December and all her numbers bottomed out and chemo is on hold currently. States she has had nonproductive cough and pain with inspiration. Began running a fever as high as 100.4 over the last couple days. Reported SOB on exertion to nursing staff. Is not requiring oxygen at this time. Admitted to Med/Surg Observation Hospital Course Subjective: Patient was treated with zosyn and vanc due to her being immunocompromised. Blood cultures negative. Procal trending down. WBC count normalized. Patient has remained on RA. She states her cough has improved. Initial UA reflexed to a culture, growing gram negative organism. Final sensitives not yet available. Will discharge patient on augmentin and doxycycline. Spoke with patient's nurse coordinator at [facility] to update them on her condition. She has apt next week. They'll consider venofer for her low iron since she doesn't tolerate oral iron well. She requested we add folate to her labs. She states last hgb was 8.7, pt is near baseline. Appearance: Pleasant, No Apparent Distress and Alert HEENT: MMM CVS: No Murmur Abdomen: Soft, Non-Tender and No Distention Respiratory: No Accessory Muscle Use Additional Findings: +trace pitting edema payal lower ext. Vital Signs: Most Recent Vital Signs Temperature 97.9 F 02/04/24 09:55 Temperature Source Oral 02/04/24 09:55 Temperature Source Oral 02/02/24 18:51 Pulse Rate 72 02/04/24 09:55 Respiratory Rate 15 02/04/24 09:55 Blood Pressure 145/85 H 02/04/24 09:55 Blood Pressure Mean 105 02/04/24 09:55 Blood Pressure Left Arm 173/91 02/02/24 23:00 Blood Pressure Location Left Arm 02/04/24 09:55 Blood Pressure Position Supine 02/04/24 09:55 O2 Sat by Pulse Oximetry 96 02/04/24 09:55 Oxygen Delivery Method Room Air 02/04/24 10:49 Height 5 ft 5 in 02/04/24 09:06 Weight 202 lb 3 oz 02/04/24 09:06 Telemetry Type Remote Telemetry 02/04/24 07:00 Telemetry Monitoring Continues 02/04/24 07:00 Telemetry Heart Rate 73 02/04/24 07:00 Telemetry SPO2 95 02/03/24 13:00 EKG [place] Interval 0.14 02/04/24 07:00 EKG QRS Interval 0.06 02/04/24 07:00 Telemetry Strip Reading SR 02/04/24 07:00 Imaging: EXAM: CHEST CTA WITH CONTRAST (PULMONARY ARTERY) FINDINGS: Pulmonary Embolism: - Diagnostic quality: Adequate. - Central (Main/Lobar/Interlobar): No embolus. - Peripheral (Segmental/Subsegmental): No embolus. - Right ventricle/Left ventricle ratio: Normal. Lines, Tubes, Devices: Right Port-A-Cath with the tip in the atrial caval junction. Lung Parenchyma and Airways: Central airways are patent without endobronchial lesion. Bibasilar consolidation. The remaining lung gallagher are clear. No suspicious pulmonary nodule. Pleural Space: The pleural effusions. No pneumothorax. Thoracic Inlet, Mediastinum, and Ashley: Thyroid gland is normal. Multiple small to prominent lymph nodes, largest in the pretracheal space measuring 1.8 x 1.6 cm. No abnormal density seen in the mediastinum. Heart, Vessels, and Pericardium: The heart is upper limits of normal for size with minimal pericardial fluid. Minimal coronary artery calcifications. The aorta shows minimal atherosclerotic calcific changes without aneurysm or indication of dissection. Bones and Soft Tissues: There is no fracture or lytic lesion. Mild degenerative changes of the spine. Chest wall shows no enlarged axillary lymph node or mass. Upper Abdomen: . The common bile duct stent is in place with pneumobilia and air in the gallbladder without other gallbladder abnormality. The pancreatic head prominence without a defined lesion. Mild ascites. The upper abdomen is otherwise unremarkable. IMPRESSION: 1. Normal CT pulmonary angiogram with no evidence of pulmonary artery embolism. 2. Mild bilateral lower lobe consolidation. Atelectasis versus pneumonia. 3. Mild ascites. 4. A small prominent mediastinal and hilar lymph nodes. 5. Other chronic and non emergent findings as above. EXAM: CT OF THE ABDOMEN AND PELVIS WITH CONTRAST History: Pancreatic carcinoma with metastatic disease to the liver Technique: 2.[address] of the chest utilizing CT angiography protocol. Multiplanar reformations were performed. FINDINGS: No prior CT for comparison. Prominent atelectasis in the lung bases. Pneumobilia with metallic biliary stent. Small volume ascites. Dilated pancreatic duct. There is a 1.4 cm hypodensity of the pancreatic head. Wedge- shaped hypodensity in the spleen with trace perisplenic ascites. 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 The appendix is normal. Normal caliber bowel loops. Generalized edema of the mesentery. Kidneys and proximal collecting system are unremarkable. Pelvic ascites. Normal pelvic genitourinary structures. Normal pelvic bowel loops. No pelvic fat inflammation. No acute findings of the skeleton. Impression: 1. No prior study for comparison 2. Metallic biliary stent in place. 3. Trace inflammatory stranding adjacent to the pancreatic head and duodenal wall thickening. Correlate for possible pancreatitis or duodenitis. 4. Small volume ascites 5. Wedge-shaped hypodensity in the spleen likely represents infarct, chronicity uncertain. 6. No bowel or urinary obstruction 7. No liver masses are seen Lab Results Last 24 Hours: 02/04/24 02/03/24 02/02/24 05:16 05:10 19:40 WBC 7.99 RBC 2.78 L Hgb 8.2 L Hct 25.6 L MCV 92.1 MCH 29.5 MCHC 32.0 RDW Coeff of Bryce 21.7 H Plt Count 146 Immature Gran % (Auto) 1.5 Neut % (Auto) 72.7 Lymph % (Auto) 10.3 [place] % (Auto) 14.1 H Eos % (Auto) 0.8 Baso % (Auto) 0.6 Neut # (Auto) 5.8 Lymph # (Auto) 0.8 [place] # (Auto) 1.1 Eos # (Auto) 0.1 Baso # (Auto) 0.1 Immature Gran # (Auto) 0.1 Sodium 131.0 L Potassium 3.54 Chloride 109.3 H Carbon Dioxide 17.0 L Anion Gap 8.24 BUN 6.9 L Creatinine 0.62 Estimated GFR (MDRD) 99.00 BUN/Creatinine Ratio 11.12 Glucose 88.1 Calcium 7.75 L Iron 22.4 L TIBC 236 L % Saturation 9 Ferritin 540.00 H Total Bilirubin 1.85 H AST 88.8 H ALT 52.6 H Alkaline Phosphatase 384.4 H Total Protein 6.16 L Albumin 2.50 L Globulin 3.66 Albumin/Globulin Ratio 0.68 Procalcitonin 0.77 H Miscellaneous Test Sent to [facility] Discharge Instructions Discharge Planning: Discharge Planning > [address] Nestor Fuentes. Discharge Medications: Medications at Discharge (Home Meds & RX) apixaban 5 mg tablet (Eliquis) 5 mg PO BID 06/22/23 ondansetron HCl 4 mg tablet 8 mg PO Q8H PRN nausea and vomiting 02/02/24 Discharge Plan Discharge Discharge Orders: Discharge Patient (ONCE); Ordered 02/04/24 Ordered By: JAYE SHARP Activity Restrictions/Additional Instructions: DISCHARGE TO HOME DIAGNOSIS: PNEUMONIA DIET: TOLERATED ACTIVITY: TOLERATED F/U WITH ONCOLOGY SCHEDULED RETURN WITH WORSENING SYMPTOMS RECOMMEND PROBIOTICS SPOKE WITH YOUR NURSE COORDINATOR, SHE WILL TALK WITH THE TEAM ABOUT OPTIONS FOR YOUR LOW IRON. Instructions: Community Acquired Pneumonia (GEN) Care Plan Goals: Problem: Infection Goal #1: No signs/symptoms of infection Instructions: Monitor for sign/symptoms of infection Monitor temperature Goal #2: White blood cell counts Within Normal Limits Instructions: Obtain labs per physician orders Patient Disposition: HOME SELF-CARE Prescriptions: New amoxicillin-pot clavulanate 875-125 mg tablet 1 tab PO BID Qty: 14 0RF doxycycline hyclate 100 mg capsule 100 mg PO BID 7 Days Qty: 14 0RF Continued Eliquis 5 mg tablet 5 mg PO BID ondansetron HCl 4 mg tablet 8 mg PO Q8H PRN (Reason: nausea and vomiting) Did you review [place] FILING WRITER for ALL controlled substances?: Not Applicable Discussed opioids are addictive and Narcan is available by prescription or from pharmacy.: No Condition: Good Referrals: JAM AGUAYO MD [Primary Care Provider] - 02/11/24 10:45 am
== END 2024-02-04 13:00 | disposition home or self-care (01) ==
LOC: MEDSURG B 18:49 → ED 18:49 → MEDSURG B 22:52
PROVIDERS: ADMIT Hospitalist; ATTEND Physician Assistant